=== PATIENT | male | born 1955 | race African-American/Black ===

== ENCOUNTER 2020-01-20 18:58 | Emergency (ER) | payer MEDICARE ==
[~2020-01-20] VITALS: Ht 182.9 cm; Wt 81.8 kg
[2020-01-20 19:01] VITALS: Ht 182.9 cm; Wt 81.8 kg
[2020-01-20 19:44] LABS: BASOPHILS 0.4 % (0-2); EOSINOPHILS 1.1 % (0-7); HEMATOCRIT 35.6 % (42.0-54.0); HEMOGLOBIN 11.2 g/dL (13.5-17.5); IMMATURE GRANULOCYTES 0.1 % (0-5); LYMPHOCYTES 34.8 % (15-50); MCH 29.7 pg (26.0-34.0); MCHC 31.5 g/dL (31.0-37.0); MCV 94.4 fL (80.0-100.0); MEAN PLATELET VOLUME 11.2 fL (7.4-10.4); MONOCYTES 6.9 % (2-11); NEUTROPHILS 56.7 % (40-80); PLATELET COUNT 202 10x3/uL (130-400); RBC 3.77 10x6/uL (4.20-6.10); RDW 12.9 % (11.5-14.5); WBC 7.4 10x3/uL (4.8-10.8)
[2020-01-20 19:53] LABS: CALC OSMOLALITY 287 mosm/kg (275-300); CALCIUM 8.7 mg/dL (8.5-10.1); CARBON DIOXIDE 29.9 mmol/L (21.0-32.0); CHLORIDE - SERUM 105 mmol/L (98-107); CREATININE - SERUM 1.5 mg/dL (0.6-1.3); GLUCOSE 210 mg/dL (74-106); POTASSIUM - SERUM 4.2 mmol/L (3.5-5.1); SODIUM 140 mmol/L (136-145); UREA NITROGEN 20 mg/dL (7-18); eGFR NON AFRICAN AMERICAN 50 mL/min (90-120)
[2020-01-20 19:57] LABS: APTT 30.3 SECONDS (22.8-39.4); INR 0.97 (0.85-1.17); PROTIME 12.9 SECONDS (11.6-15.0)
[2020-01-20 20:09] LABS: ALBUMIN 3.5 g/dL (3.4-5.0); ALKALINE PHOSPHATASE 69 U/L (30-120); ALT (SGPT) 21 U/L (10-68); CREATINE KINASE 130 UL (21-232); MAGNESIUM - SERUM 1.8 mg/dL (1.8-2.4); PROTEIN - SERUM 7.3 g/dL (6.4-8.2)
[2020-01-20 20:10] LABS: TROPONIN-I < 0.017 ng/mL (0.000-0.060)
[2020-01-20 20:32] LABS: CKMB 0.8 U/L (0.0-3.6)
[2020-01-20 21:21] VITALS: BP 163/86
== END 2020-01-20 21:21 | disposition home or self-care (01) ==
LOC: D.ER 18:58
PROVIDERS: Emergency Medicine
DX: R55 Syncope and collapse (principal)

== ENCOUNTER 2020-01-21 13:38 | Emergency (ER) | payer MEDICARE ==
[~2020-01-21] VITALS: Ht 182.9 cm; Wt 100.0 kg
[2020-01-21 13:50] VITALS: Ht 182.9 cm; Wt 100.0 kg
[2020-01-21 15:35] VITALS: BP 163/91
== END 2020-01-21 15:35 | disposition home or self-care (01) ==
LOC: D.ER 13:38
DX: S80.02XA Contusion of left knee, initial encounter (principal); E11.65 Type 2 diabetes mellitus with hyperglycemia; X58.XXXA Exposure to other specified factors, initial encounter

== ENCOUNTER 2020-03-29 18:09 | Emergency (ER) | payer MEDICARE ==
[~2020-03-29] VITALS: Ht 182.9 cm; Wt 90.9 kg
[2020-03-29 18:17] VITALS: Ht 182.9 cm; Wt 90.9 kg
[2020-03-29 19:00] LABS: BASOPHILS 0.4 % (0-2); EOSINOPHILS 0.4 % (0-7); HEMATOCRIT 33.6 % (42.0-54.0); HEMOGLOBIN 10.9 g/dL (13.5-17.5); IMMATURE GRANULOCYTES 0.1 % (0-5); LYMPHOCYTES 34.7 % (15-50); MCH 29.9 pg (26.0-34.0); MCHC 32.4 g/dL (31.0-37.0); MCV 92.1 fL (80.0-100.0); MEAN PLATELET VOLUME 10.8 fL (7.4-10.4); MONOCYTES 10.4 % (2-11); PLATELET COUNT 216 10x3/uL (130-400); RBC 3.65 10x6/uL (4.20-6.10); WBC 7.6 10x3/uL (4.8-10.8)
[2020-03-29 19:13] LABS: CALC OSMOLALITY 282 mosm/kg (275-300); CALCIUM 9.2 mg/dL (8.5-10.1); CARBON DIOXIDE 27.1 mmol/L (21.0-32.0); CHLORIDE - SERUM 102 mmol/L (98-107); CREATININE - SERUM 2.3 mg/dL (0.6-1.3); GLUCOSE 165 mg/dL (74-106); SODIUM 137 mmol/L (136-145); UREA NITROGEN 26 mg/dL (7-18); eGFR NON AFRICAN AMERICAN 30 mL/min (90-120)
[2020-03-29 19:15] LABS: INR 1.02 (0.85-1.17); PROTIME 13.3 SECONDS (11.6-15.0)
[2020-03-29 19:30] LABS: ALBUMIN 3.6 g/dL (3.4-5.0); ALKALINE PHOSPHATASE 48 U/L (30-120); ALT (SGPT) 13 U/L (10-68); BILIRUBIN - TOTAL 0.47 mg/dL (0.2-1.3); CKMB 0.7 U/L (0.0-3.6); CREATINE KINASE 245 UL (21-232)
[2020-03-29 19:32] LABS: TROPONIN-I < 0.017 ng/mL (0.000-0.060)
[2020-03-29] MEDS ORDERED: AUGMENTIN 875-11 TAB PO (20:04)
[2020-03-29 22:02] VITALS: BP 129/87
== END 2020-03-29 22:02 | disposition home or self-care (01) ==
LOC: D.ER 18:09
PROVIDERS: Family Medicine
DX: S61.216A Laceration without foreign body of right little finger without damage to nail, initial encounter (principal); X58.XXXA Exposure to other specified factors, initial encounter; E11.9 Type 2 diabetes mellitus without complications

== ENCOUNTER 2020-04-04 12:55 | Emergency (ER) | payer MEDICARE ==
[~2020-04-04] VITALS: Ht 182.9 cm; Wt 84.1 kg
[~2020-04-04 12:55] MED LIST: AUGMENTIN 875-11 TAB PO
[2020-04-04 13:08] VITALS: BP 136/98; Ht 182.9 cm; Wt 84.1 kg
== END 2020-04-04 13:47 | disposition home or self-care (01) ==
LOC: D.ER 12:55
DX: Z48.02 Encounter for removal of sutures (principal); E11.9 Type 2 diabetes mellitus without complications